=== PATIENT | female | born 1955 | race American Indian/Alaskan Native ===

== ENCOUNTER 2019-06-11 00:20 | Emergency (ER) | payer OTHER ==
[2019-06-11] MEDS ORDERED: cloNIDine 0.2 MG TAB PO ONE (00:35)
--- NOTE | 2019-06-11 00:36 | Emergency Department Report ---
ED General Adult HPI - General Stated complaint: ELEVATED BLOOD PRESSURE PUI?: Yes Time Seen by Provider: 06/11/19 00:32 Source: patient Mode of arrival: Stretcher Limitations: No Limitations - History of Present Illness Initial comments: 64-year-old female presents to ED with elevated blood pressure, dizziness, that started around 6 PM yesterday. Patient prior to that have been feeling generally unwell, patient denied any prior medical history, denies any surgeries, denies any allergies. 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 She denies any chest pain, shortness of breath, focal weakness. Patient denies any headache, denies any alleviating or exacerbating factors. Patient has not taking any medications for symptoms. She denies any recent travel or sick contacts. - Related Data Previous Rx's Medication Instructions Recorded Last Taken Type NIFEdipine XL [Procardia Xl] 90 mg PO QDAY 90 Days #90 tablet 06/11/19 Unknown Rx Allergies Allergy/AdvReac Type Severity Reaction Status Date / Time No Known Allergies Allergy Unverified 06/11/19 00:56 ED Review of Systems ROS: Stated complaint: ELEVATED BLOOD PRESSURE Other details as noted in HPI Comment: All other systems reviewed and negative Respiratory: denies: cough Cardiovascular: denies: chest pain Gastrointestinal: as per HPI. denies: abdominal pain, nausea, vomiting Genitourinary: denies: urgency Musculoskeletal: denies: back pain Neurological: vertigo (Dizziness), other (Dizziness) Psychiatric: as per HPI. denies: anxiety, depression ED Past Medical Hx - Past Medical History Previous Medical History?: No - Surgical History Past Surgical History?: No - Family History Family history: hypertension - Social History Smoking Status: Never Smoker Substance Use Type: None - Medications Home Medications: Home Medications Medication Instructions Recorded Confirmed Last Taken Type NIFEdipine XL [Procardia Xl] 90 mg PO QDAY 90 Days #90 tablet 06/11/19 Unknown Rx ED Physical Exam - General Limitations: Language Barrier General appearance: alert, in no apparent distress - Head Head exam: Present: atraumatic, normocephalic - Eye Eye exam: Present: normal appearance - ENT ENT exam: Present: mucous membranes moist - Neck Neck exam: Present: normal inspection - Respiratory Respiratory exam: Present: normal lung sounds bilaterally. Absent: respiratory distress - Cardiovascular Cardiovascular Exam: Present: regular rate, normal rhythm. Absent: systolic murmur, diastolic murmur, rubs, gallop - GI/Abdominal GI/Abdominal exam: Present: soft, normal bowel sounds - Extremities Exam Extremities exam: Present: normal inspection - Back Exam Back exam: Present: normal inspection - Neurological Exam Neurological exam: Present: alert, oriented X3 - Psychiatric Psychiatric exam: Present: normal affect, normal mood - Skin Skin exam: Present: warm, dry, intact, normal color. Absent: rash ED Course Vital Signs 06/11/19 06/11/19 06/11/19 00:20 00:48 01:00 Temperature 99.5 F Pulse Rate 101 H 88 Respiratory 20 16 16 Rate Blood Pressure 195/111 Blood Pressure 201/109 [Right] O2 Sat by Pulse 99 97 Oximetry 06/11/19 06/11/19 06/11/19 01:08 01:26 01:30 Temperature Pulse Rate 105 H 89 81 Respiratory 14 11 L Rate Blood Pressure 195/111 Blood Pressure [Right] O2 Sat by Pulse 98 99 Oximetry 06/11/19 06/11/19 06/11/19 01:46 01:53 02:05 Temperature Pulse Rate 88 73 Respiratory 18 Rate Blood Pressure 194/106 190/108 190/108 Blood Pressure [Right] O2 Sat by Pulse 99 99 Oximetry 06/11/19 06/11/19 06/11/19 02:15 02:30 02:46 Temperature Pulse Rate 71 68 67 Respiratory 15 17 19 Rate Blood Pressure 192/91 172/94 147/84 Blood Pressure [Right] O2 Sat by Pulse 96 94 Oximetry ED Medical Decision Making - Lab Data Result diagrams: 06/11/19 00:43 06/11/19 00:43 - EKG Data -: EKG Interpreted by Me EKG shows normal: sinus rhythm Rate: normal - EKG Data Interpretation: nonspecific ST-T wave danita 06/11/19 01:54 RATE 83 - Radiology Data Radiology results: report reviewed interpreted by me: yes ct showed no acute findings. - Medical Decision Making presents to ER with high bp ct head done showed no acute findings clonidine 0.2 mg po x 1 given, bp still elevated, labetalol 20mg iv given. - Differential Diagnosis cva,hypertensive urgency, hypertensive emergency, arrhythmia Critical care attestation.: If time is entered above; I have spent that time in minutes in the direct care of this critically ill patient, excluding procedure time. ED Disposition Clinical Impression: Labile hypertension Disposition: DC- TO HOME OR SELFCARE Is pt being admited?: No Does the pt Need Aspirin: No Condition: Stable Instructions: Hypertension (ED) Prescriptions: NIFEdipine XL [Procardia Xl] 90 mg PO QDAY 90 Days #90 tablet Referrals: PRIMARY CARE, [Primary Care Provider] - 3-5 Days Forms: Work/School Release Form(ED)
[2019-06-11 01:25] LABS: Basophils # (Auto) 0.1 K/mm3 (0.0-0.1); Basophils % (Auto) 1.4 % (0.0-1.8); Eosinophils % (Auto) 0.4 % (0.0-4.3); Hematocrit 35.9 % (30.3-42.9); Hemoglobin 11.7 gm/dl (10.1-14.3); Lymphocytes # (Auto) 1.4 K/mm3 (1.2-5.4); Lymphocytes % (Auto) 24.4 % (13.4-35.0); Mean Corpuscular HGB Conc 33 % (30-34); Mean Corpuscular Volume 75 fl (79-97); Monocytes # (Auto) 0.5 K/mm3 (0.0-0.8); Monocytes % (Auto) 8.5 % (0.0-7.3); Platelet Count 345 K/mm3 (140-440); Red Blood Count 4.79 M/mm3 (3.65-5.03); Red Cell Distribution Width 15.8 % (13.2-15.2)
--- NOTE | 2019-06-11 01:32 | Cat Scan Report ---
CT head/brain wo con INDICATION: Pt complains of dizziness, elevated blood pressure.. TECHNIQUE: All CT scans at this location are performed using the following dose modulation technique: Automated exposure control. CONTRAST: None. COMPARISON: None available. FINDINGS: The ventricular system is appropriate in size and configuration without midline shift. Nega tive for mass, stroke or hemorrhage. Imaged portions of the paranasal sinuses are clear. IMPRESSION: Negative CT brain without contrast. Signer Name: Bruce Briones MD Signed: 06/11/2019 1:28 AM Workstation Name: [id number]
[2019-06-11 01:49] LABS: Albumin 3.8 g/dL (3.9-5); BUN/Creatinine Ratio 14; Blood Urea Nitrogen 11 mg/dL (7-17); Calcium 9.2 mg/dL (8.4-10.2); Hemolysis Index 255
[2019-06-11 02:09] LABS: Alanine Aminotransferase 11 units/L (7-56)
[2019-06-11 02:56] VITALS: BP 147/84
== END 2019-06-11 02:55 | disposition home or self-care (01) ==
LOC: ED 00:20
DX: I10 Essential (primary) hypertension (principal); Z82.49 Family history of ischemic heart disease and other diseases of the circulatory system
CPT/HCPCS: 36415; 70450; 80053; 83036; 84484; 85025; 93005; 96374